=== PATIENT | female | born 1955 | race Caucasian/White ===

== ENCOUNTER 2017-09-19 07:12 | Day surgery (SDC) | payer BC ==
[2017-09-18 14:40] VITALS: BMI 27.4
--- NOTE | 2017-09-19 08:12 | HP ---
[facility]ellite [facility] - Chief Complaint Chief Complaint: right shoulder pain - Past Medical History Allergies/Adverse Reactions: Allergies Allergy/AdvReac Type Severity Reaction Status Date / Time No Known Drug Allergies Allergy Verified 09/18/17 14:44 codeine AdvReac Verified 09/18/17 14:44 - Current Medications Current Medications: Home Medications Medication Instructions Recorded Amlodipine/Atorvastatin 1 each PO DAILY 09/18/17 [Amlodipine-Atorvast 5-20 mg] Hydrocodone/Acetaminophen [Orla 1 each PO Q6H PRN #40 tablet MDD 4 09/19/17 5-325 Tablet] Satellite Physical Exam - Physical Examination General Appearance: Well Nourished, Well Developed, Alert & Oriented x3 ENT: Clear Lung: Normal air movement Heart: Regular rate & rhythm Extremities: Other (right shoulder- + ttp, decr r om, +empty can, nvi MRI + rct) Neurological: Intact, Alert, Oriented Satellite Impression/Plan - Impression/Plan Impression: right shoulder rct Operative Procedure: right shoulder arthroscopy with RCR, SAD Date to be Performed: 09/19/17
[2017-09-19] MEDS ORDERED: BUPIVACAINE HCL/PF 0.5% (5MG/ML) 10 ML VIAL ONE (10:59)
[2017-09-19] MEDS ORDERED: DEXAMETHASONE SOD PHOSPHATE/PF 10 MG/ML SDV ONE (10:59)
[2017-09-19] MEDS ORDERED: MIDAZOLAM HCL 2 MG/2 ML SINGLE DOSE VIAL ONE ×2 (11:01)
[2017-09-19] MEDS ORDERED: ONDANSETRON 4 MG/2 ML VIAL IVPUSH PRN ×2 (11:47→16:12)
[2017-09-19] MEDS ORDERED: oxyCODONE HCL 5 MG TABLET PO PRN ×4 (11:47→16:12)
[2017-09-19] MEDS ORDERED: LACTATED RINGERS SOLUTION 1,000 ML IV SCH ×2 (12:00→16:15)
[2017-09-19] MEDS ORDERED: ceFAZolin SODIUM 1 GM VIAL IVPB ONE (13:44)
[2017-09-19] MEDS ORDERED: PROPOFOL 20 ML ONE ×2 (14:11→15:28)
[2017-09-19] MEDS ORDERED: DESFLURANE GAS 240 ML BOTTLE IH ONE (15:32)
--- NOTE | 2017-09-19 15:55 | OP ---
Operative Note - Note: Operative Date: 09/19/17 ([facility]) Pre-Operative Diagnosis: right shoulder rct Operation: right shoulder arthroscopy with RCR, SAD Implants: 1 arthrex swivelock Post-Operative Diagnosis: Same as Pre-op Surgeon: Bernardino Chi It Help Desk Manager: Robbie Loving Anesthesiologist/ADJUTANT GENERAL: Niharika Doe Anesthesia: General, Local Specimens Removed: shavings Estimated Blood Loss (mls): 10 Operative Report Dictated: Yes
[2017-09-19] MEDS ORDERED: PROMETHAZINE HCL 25 MG/1 ML VIAL IVPB PRN (16:13)
[2017-09-19 19:24] VITALS: BP 137/84; PULSE 73; TEMP 97.7
--- NOTE | 2017-09-20 07:35 | OP ---
DATE OF OPERATION: 09/19/2017 PREOPERATIVE DIAGNOSIS: Right shoulder impingement syndrome, possible rotator cuff tear, possible labral tear. POSTOPERATIVE DIAGNOSIS: Right shoulder impingement syndrome, rotator cuff tear and labral tear. PROCEDURE: Right shoulder arthroscopy, subacromial decompression, arthroscopic labral repair, arthroscopic rotator cuff repair. SURGEON: Willard Mata MD [employer]ER: DOUGLAS Dixon, Elder Bloom MD, and . ANESTHESIA: Right interscalene block, LMA anesthesia. DRAINS: None. COMPLICATIONS: None. BLOOD LOSS: Minimal. BLOOD GIVEN: None. FLUID REPLACEMENT: Plasmalyte 1000 mL. INDICATION: This patient was a 62-year-old female with a preoperative diagnosis of right shoulder impingement syndrome, possible labral tear, possible rotator cuff tear. After understanding the potential risks, complications, alternatives, and benefits of surgery versus nonsurgical treatment, the patient elected to undergo this procedure. DESCRIPTION OF PROCEDURE: Patient was brought to the operating room, peripheral IV placed, IV sedation given. IV Ancef 1 g was given. Right interscalene block was performed. LMA anesthesia was induced. She was placed into the beach chair position with ample padding throughout. The right upper extremity was prepped and draped in sterile fashion. The bony landmarks were marked out with a marking pen, posterior portal established, and a diagnostic glenohumeral arthroscopy was performed. In the glenohumeral joint the patient was seen to have a frayed anterior labrum from the 12 o'clock to 3 o'clock position. There was some synovitis. There was also what looked to be a complete rotator cuff tear in the supraspinatus insertion. The glenoid and the humerus looked fine. There was no arthritis. An anterior portal was established under direct visualization using a spinal needle and No. 11 scalpel blade. Then a green cannula was introduced into the joint. The labrum was probed, and indeed it was torn, therefore it was repaired in a standard fashion. First a nishi was used to bring it up off the glenoid. That area was debrided a bit and roughened up for better repair. The synovitis and frayed edges were removed. Next, under direct visualization, a FiberWire was placed around in a lasso fashion, and an arthroscopic SwiveLock anchor was placed into the rim of the glenoid in a standard fashion. The excess tails were cut. The labrum was probed. It was seen to look quite good. Next, our attention turned to the subacromial space. Lateral portal was established under direct visualization. Patient had a lot of inflammatory bursitis. An extensive debridement/soft tissue bursectomy was performed with the ArthroCare wand and a straight shaver. This revealed a small to moderate-sized subacromial spur. This was taken down with a 5.5-mm oval bur and fine tuned in reverse with the shaver. There was no subcuticular . Top surface of the rotator cuff was then directly visualized, and it was seen that there was a small complete tear. Arthroscopically, using the [employer] suture passer, 2 FiberWires were placed through the torn rotator cuff, and fixation was done in the standard fashion using a PushLock anchor under direct visualization. It came down quite nicely. The rotator cuff moved as a unit with the head. There were no other points of rotator cuff tear. The area was copiously irrigated and washed out, all instrumentation removed. The arthroscopy portals were closed with 3-0 nylon sutures. The area was then washed and dried, covered with Aquacel dressing. The patient was placed into a shoulder immobilizer. Total operative time was about 1 hour. There were no complications during the case. The patient tolerated the procedure quite well and was brought to ambulatory recovery in stable condition. WILLARD MATA M.D. [id number]
--- NOTE | 2017-09-25 17:11 | PATH ---
Surgical Pathology Report Patient Name: LILLY BARLOW [facility]. Rec. #: [id number] /Age/Gender: 1955 (Age: 62) / F Account: [id number] Location: [facility] Taken: 09/19/2017 Received: 09/20/2017 Reported: 09/25/2017 Physicians: Bernardino Chi M.D. Specimen(s) Received RIGHT SHOULDER SHAVINGS Clinical History Right shoulder tear Final Diagnosis RIGHT SHOULDER, SHAVINGS: FRAGMENTS OF SYNOVIAL TISSUE, SKELETAL MUSCLE, FIBROCARTILAGINOUS TISSUE, AND BONE SHOWING DEGENERATIVE CHANGE. Electronically Signed Dorothy Fernández M.D. Gross Description Received in formalin, labeled "right shoulder shavings," is a 4.5 x 4.5 x 0.5 cm. aggregate of titus-yellow soft tissue fragments. A bottling equipment sales representative portion is submitted in one cassette. /09/21/201709/21/2017
== END 2017-09-19 19:10 | disposition home or self-care (01) ==
LOC: JASU-SURG 07:12
PROVIDERS: ATTEND Orthopaedic Surgery
PROC: 0RQJ4ZZ Repair Right Shoulder Joint, Percutaneous Endoscopic Approach (ICD-10-PCS; 2017-09-19)
PROC: 0LQ14ZZ Repair Right Shoulder Tendon, Percutaneous Endoscopic Approach (ICD-10-PCS; principal; 2017-09-19 11:30)
PROC: 0RNJ4ZZ Release Right Shoulder Joint, Percutaneous Endoscopic Approach (ICD-10-PCS; 2017-09-19 11:30)
DX: M75.101 Unspecified rotator cuff tear or rupture of right shoulder, not specified as traumatic (principal); M24.111 Other articular cartilage disorders, right shoulder; M75.41 Impingement syndrome of right shoulder
CPT/HCPCS: 88304-TC; 94760

== ENCOUNTER 2021-05-23 20:58 | Emergency (ER) | payer OTHER, BC ==
[2021-05-23 21:21] VITALS: BP 152/84; PULSE 80; TEMP 99.5; BMI 27.4
[2021-05-23] MEDS ORDERED: ACETAMINOPHEN 500 MG TABLET (FP) PO ONE (21:26)
[2021-05-23] MEDS ORDERED: ACETAMINOPHEN 500 MG TABLET (FP) ONE (21:31)
== END 2021-05-23 22:44 | disposition home or self-care (01) ==
LOC: FER 20:58
DX: S82.832A Other fracture of upper and lower end of left fibula, initial encounter for closed fracture (principal); X50.0XXA Overexertion from strenuous movement or load, initial encounter; W00.0XXA Fall on same level due to ice and snow, initial encounter
CPT/HCPCS: 73590-TC-LT-FY; 73610-TC-LT-FY; 73630-TC-LT; 99284-25

== ENCOUNTER 2022-08-08 09:56 | Emergency (ER) | payer OTHER, BC ==
[2022-08-08 10:06] VITALS: RESP 20; TEMP 99.1; BMI 26.6
[2022-08-08 11:02] LABS: BILIRUBIN,TOTAL 0.5 mg/dl (0.2-1); CALCIUM 8.7 mg/dl (8.5-10); CREATININE 0.7 mg/dl (0.55-1.3); TOT PROT 7.1 g/dl (6.4-8.2)
[2022-08-08 12:34] LABS: VENOUS BASE EXCESS 0.3 mmol/L (-2-2); VENOUS O2 SATURATION 79.2 % (70-80); VENOUS PCO2 45.7 mmHg (38-52); VENOUS PH 7.372 (7.310-7.410)
[2022-08-08 12:38] LABS: N-TERMINAL BNP 89.8 pg/ml (5-125)
[2022-08-08 12:41] LABS: HEMATOCRIT 40.6 % (32.4-45.2); HEMOGLOBIN 14.1 GM/dL (10.7-15.3); MCH 32.3 pg (25.7-33.7); MCHC 34.7 g/dl (32.0-36.0); MEAN CELL VOLUME 93.3 fl (80-96); MEAN PLT VOLUME 8.2 fl (7.5-11.1); PLATELET COUNT 164 10^3/uL (134-434); RBC 4.35 M/mm3 (3.60-5.2); RDW 13.9 % (11.6-15.6); WHITE BLOOD COUNT 5.1 K/mm3 (4.0-10.0)
[2022-08-08 13:30] LABS: EOS % 4.4 % (0-4.5); LYMPH % 22.3 % (8-40); MONO % 16.9 % (3.8-10.2); NEUT % 55.4 % (42.8-82.8)
[2022-08-08 13:53] VITALS: BP 135/87; PULSE 77
[2022-08-08] MEDS ORDERED: ACETAMINOPHEN 325 MG TABLET (FP) PO ONE (14:01)
[2022-08-08] MEDS ORDERED: ACETAMINOPHEN 325 MG TABLET (FP) ONE (15:33)
== END 2022-08-08 16:30 | disposition home or self-care (01) ==
LOC: FER 09:56
DX: J98.4 Other disorders of lung (principal); R05.3 Chronic cough; R09.81 Nasal congestion; Z20.822 Contact with and (suspected) exposure to COVID-19
CPT/HCPCS: 0241U-QW; 36415; 71046-TC-FY; 71275-TC; 80053; 82803; 83880; 84484; 85025; 85379; 93005; 99285-25; C1887; Q9967